=== PATIENT | female | born 1990 | race Caucasian/White ===

== ENCOUNTER 2021-02-18 01:04 | Emergency (ER) | payer SELFPAY ==
--- NOTE | 2021-02-18 01:45 | EDM.PDOC ---
ED HPI GENERAL MEDICAL PROBLEM - General Chief Complaint: DIRECTOR DIGITAL ADVERTISING Problem Stated Complaint: 3 MONTHS PREG, ALOT OF BLOOD WHEN GOING TOBATHROOM Time Seen by Provider: 02/18/21 01:43 Source of Information: Reports: Patient, RN, RN Notes Reviewed History Limitations: Reports: No Limitations - History of Present Illness INITIAL COMMENTS - FREE TEXT/NARRATIVE: Ida is a 30 y/o female with an OB history of L1 who presents to the ED via personal vehicle with complaints of vaginal bleeding. The patient states she noted blood while using the toilet approximately one hour prior to her arrival at this facility. She denies history of previous complications with this . She denies recent illness, fever, shaking chills, nausea, vomiting, abdominal pain, abdominal cramping, vaginal discharge, dysuria, hematuria, constipation, diarrhea, rough intercourse, or rigorous activity. She states her LMP was 10/25/2020 and is approximately 14 weeks . The patient reports she will be following with Dr. Taylor for obstetrical care and has an appointment March 01, 11 days from now. - Related Data Allergies Allergy/AdvReac Type Severity Reaction Status Date / Time No Known Allergies Allergy Verified 02/18/21 03:42 Home Meds: Home Meds . [No Known Home Meds] 02/18/21 [History] ED ROS GENERAL - Review of Systems Review Of Systems: Comprehensive ROS is negative, except as noted in HPI. ED EXAM - Physical Exam Exam: See Below Exam Limited By: No Limitations General Appearance: Alert, No Apparent Distress Throat/Mouth: Normal Inspection, Normal Oropharynx, Normal Voice, No Airway Compromise Head: Atraumatic, Normocephalic Neck: Normal Inspection, Supple, Non-Tender, Full Range of Motion Respiratory/Chest: No Respiratory Distress, Lungs Clear, Normal Breath Sounds, No Accessory Muscle Use, Chest Non-Tender Cardiovascular: Normal Peripheral Pulses, Regular Rate, Rhythm, No Edema, No Gallop, No JVD, No Murmur, No Rub GI/Abdominal Exam: Normal Bowel Sounds, Soft, Non-Tender, No Distention, No Mass, Pelvis Stable Rectal Exam: Deferred (Female) Exam: Normal External Exam, Cervical Discharge (Red-tinged). No: Normal Speculum Exam (Scant red-tinged discharge noted from cervix), Adnexal Tenderness, Cervical Dilatation, Cervical Lesions, Cervix Motion Tenderness, Tissue Present in Cervix/Vagina, Uterine Tenderness, Vaginal Bleeding, Vaginal Discharge, Vaginal Lesions, Vaginal Tears Heart Tones: Present Heart Tones per Min: 155 Movement: Active (via US) Back Exam: Normal Inspection, Full Range of Motion. No: CVA Tenderness (L), CVA Tenderness (R) Extremities: Normal Inspection, Normal Range of Motion, Non-Tender, No Pedal Edema, Normal Capillary Refill Neurological: Alert, Oriented, CN II-XII Intact, Normal Cognition, Normal Gait, No Motor/Sensory Deficits Psychiatric: Normal Affect, Normal Mood Skin Exam: Warm, Dry, Intact, Normal Color, No Rash. No: Ecchymosis, Erythema, Jaundice, Mottled, Pallor, Petechiae Course - Vital Signs Last Recorded V/S: Last Vital Signs Temp 98.1 F 02/18/21 01:10 Pulse 99 02/18/21 01:10 Resp 18 02/18/21 01:10 BP 121/58 L 02/18/21 01:10 Pulse Ox 100 02/18/21 01:10 - Orders/Labs/Meds Labs: Laboratory Tests 02/18/21 02/18/21 02/18/21 Range/Units 01:50 01:50 01:50 WBC 14.4 H (5.0-10.0) 10^3/uL RBC 3.88 L (4.2-5.4) 10^6/uL Hgb 11.5 L (12.0-16.0) g/dL Hct 34.3 L (37.0-47.0) % MCV 88.4 (80-100) fL MCH 29.6 (27.0-34.0) pg MCHC 33.5 (33.0-35.0) g/dL Plt Count 326 (150-450) 10^3/uL Neut % (Auto) 67.1 (42.2-75.2) % Lymph % (Auto) 24.5 (20.5-50.1) % Tyler % (Auto) 6.7 (2-8) % Eos % (Auto) 1.4 (1.0-3.0) % Baso % (Auto) 0.3 (0.0-1.0) % Sodium 138 (136-145) mmol/L Potassium 4.2 (3.5-5.1) mmol/L Chloride 104 (98-107) mmol/L Carbon Dioxide 25 (21-32) mmol/L Anion Gap 13.2 H (7-13) mEq/L BUN 6 L (7-18) mg/dL Creatinine 0.71 (0.55-1.02) mg/dL Est Cr Clr Drug Dosing 108.46 mL/min Estimated GFR (MDRD) > 60 BUN/Creatinine Ratio 8.5 (No establ ref range) Glucose 142 H (70-99) mg/dL Calcium 8.2 L (8.5-10.1) mg/dL Total Bilirubin 0.2 (0.2-1.0) mg/dL AST 10 L (15-37) U/L ALT 18 (14-59) U/L Alkaline Phosphatase 32 L (46-116) U/L Total Protein 6.4 (6.4-8.2) g/dL Albumin 3.0 L (3.4-5.0) g/dL Globulin 3.4 Albumin/Globulin Ratio 0.88 HCG, Quant 03030 H (0-6) mIU/mL - Radiology Interpretation Free Text/Narrative:: [facility] - Final Radiology Report Call: [phone] assistance Online chat: [email or web address] Name: IDA LOGAN Age: 30Years F Date: 02/18/2021 SSN: -- : 1990 Study: US OB 1ST TRI EA ADDL GEST Requesting Physician: Yamilex Odonnell Images: 15 Addl Studies: Provided Clinical History: Vaginal bleeding Contrast: Without Contrast Medium: Contrast Amount: Contrast Method: Page 1 of 2 PROCEDURE INFORMATION: Exam: US First Trimester, Transabdominal Exam date and time: 02/18/2021 2:34 AM Age: 30 years old Clinical indication: Lmp or gestational age (in weeks): 13 w 6 d by lmp; Other: Bleeding; ; Additional info: Vaginal bleeding TECHNIQUE: Imaging protocol: Real-time transabdominal obstetrical ultrasound of the maternal pelvis and a first trimester , less than 14 weeks 0 days, with image documentation. COMPARISON: No relevant prior studies available. FINDINGS: Gestation: Single intrauterine gestation. Yolk sac is unremarkable. Embryonic/ heart rate: 155 bpm Extra-embryonic membranes/Placenta: Unremarkable. No subchorionic bleed. Amniotic fluid: Amniotic and coelomic fluid are normal for gestational age. BIOMETRY: Gestational age (AUA): 13 weeks 2 days MATERNAL: Uterus: Unremarkable. Cervix: Unremarkable. Right adnexa: Unremarkable. Left adnexa: Unremarkable. Intraperitoneal space: No intraperitoneal free fluid. IMPRESSION: Single live intrauterine with ultrasound measurements corresponding to an age of 13 weeks 2 days. No acute abnormality. Thank you for allowing us to participate in the care of your patient. Dictated and Authenticated by: Ryan Mckeon MD 02/18/2021 4:05 AM Central Time ([place] & [place]) - Re-Assessments/Exams Free Text/Narrative Re-Assessment/Exam: 02/18/21 Speculum exam appropriate. Will obtain obstetric US. Hgb mildly reduced at 11.5. Appropriate elevation in WBC at 14.4 given . Electrolytes, kidney function, and liver function via CMP. Hcg 14549, consistent with stated LMP. US reveals single intrauterine gestation, measuring 13+2. movement noted on US. Fundal placenta. Findings of examination, blood work, and imaging reviewed with patient. Discussed need to follow up with Dr. Taylor following ED visit. Red flag signs and symptoms which would warrant immediate reevaluation reviewed. Patient verbalized understanding and agreement with the plan of care. Departure - Departure Time of Disposition: 04:10 Disposition: Home, Self-Care 01 Condition: Good Clinical Impression: First trimester , Vaginal bleeding before 22 weeks gestation, Normocytic normochromic anemia - Discharge Information *PRESCRIPTION DRUG MONITORING PROGRAM REVIEWED*: Not Applicable *COPY OF PRESCRIPTION DRUG MONITORING REPORT IN PATIENT CONSTANTINE: Not Applicable Instructions: Vaginal Bleeding During , First Trimester, [id number] Referrals: Heber Taylor MD [Primary Care Provider] - Forms: ED Department Discharge Additional Instructions: 1.) Follow up with your OBGYN regarding today's visit. 2.) Continue to monitor for vaginal bleeding, return to the emergency department with any vaginal bleeding that saturates a pad in one hour, x2 hours. 3.) Drink plenty of water to stay hydrated. Sepsis Event Note (ED) - Focused Exam Vital Signs: Vital Signs Temp Pulse Resp BP Pulse Ox 05/28/21 01:10 98.1 F 99 18 121/58 L 100
[2021-02-18 02:46] LABS: ANION GAP 13.2 mEq/L (7-13); CHLORIDE,CL 104 mmol/L (98-107); SODIUM,NA 138 mmol/L (136-145)
--- NOTE | 2021-02-18 04:06 | US ---
PROCEDURE INFORMATION: Exam: US First Trimester, Transabdominal Exam date and time: 02/18/2021 2:34 AM Age: 30 years old Clinical indication: Lmp or gestational age (in weeks): 13 w 6 d by lmp; Other: Bleeding; ; Additional info: Vaginal bleeding TECHNIQUE: Imaging protocol: Real-time transabdominal obstetrical ultrasound of the maternal pelvis and a first trimester , less than 14 weeks 0 days, with image documentation. COMPARISON: No relevant prior studies available. FINDINGS: Gestation: Single intrauterine gestation. Yolk sac is unremarkable. Embryonic/ heart rate: 155 bpm Extra-embryonic membranes/Placenta: Unremarkable. No subchorionic bleed. Amniotic fluid: Amniotic and coelomic fluid are normal for gestational age. BIOMETRY: Gestational age (AUA): 13 weeks 2 days MATERNAL: Uterus: Unremarkable. Cervix: Unremarkable. Right adnexa: Unremarkable. Left adnexa: Unremarkable. Intraperitoneal space: No intraperitoneal free fluid. IMPRESSION: Single live intrauterine with ultrasound measurements corresponding to an age of 13 weeks 2 days. No acute abnormality.
== END 2021-02-18 04:25 | disposition home or self-care (01) ==
LOC: DL.ED 01:04
DX: O20.9 Hemorrhage in early pregnancy, unspecified (principal); O99.012 Anemia complicating pregnancy, second trimester; Z3A.22 22 weeks gestation of pregnancy
CPT/HCPCS: 36415; 76802; 80053; 84702; 85025; 99284-25

== ENCOUNTER 2021-08-11 08:45 | Inpatient (IN) | payer MEDICAID ==
[2021-08-11] MEDS ORDERED: ePHEDrine 50 MG/ML SDV IVPUSH PRN (12:52)
[2021-08-11] MEDS ORDERED: Naloxone 2 MG/2 ML Syringe IVPUSH PRN (12:52)
[2021-08-11] MEDS ORDERED: Methylergonovine 0.2 MG/1 ML Amp IM PRN (12:52)
[2021-08-11] MEDS ORDERED: Carboprost Tromethamine 250 MCG/1 ML Amp IM PRN (12:52)
[2021-08-11] MEDS ORDERED: Tranexamic Acid 1,000 MG in Sodium Chloride 0.9% 100 ML IV PRN (12:52)
[2021-08-11] MEDS ORDERED: Lactated Ringers 1,000 ML IV SCH (12:52)
[2021-08-11] MEDS ORDERED: Docusate Sodium 100 MG Cap PO PRN (12:52)
[2021-08-11] MEDS ORDERED: Acetaminophen/oxyCODONE 325-5 MG Tab PO PRN ×2 (12:52)
[2021-08-11] MEDS ORDERED: Ondansetron 4 MG/2 ML SDV IVPUSH PRN (12:52)
[2021-08-11] MEDS ORDERED: Misoprostol 400 MCG (4 X 100 MCG TAB) RECTAL PRN (12:52)
[2021-08-11] MEDS ORDERED: diphenhydrAMINE 50 MG/ML SDV IVPUSH PRN (12:52)
--- NOTE | 2021-08-11 12:53 | HP ---
"CHIEF COMPLAINT: Biophysical profile score less than or equal to 6/10. HISTORY OF PRESENT ILLNESS: Azra is a 31-year-old, G2, P1-0-0-1, at 38-5/7 days gestational age by first trimester ultrasound. She was seen today for surveillance with nonstress test and biophysical profile due to gestational diabetes and Rh negative status. Upon completion of biophysical profile this morning, Dr. Taylor was notified of poor BPP. NST was reassuring, however, reactive baseline FHT in the 140s, acels present and moderate variability. Upon consultation with [facility] Obstetric[facility] on-call Dr. Ureña, was called and then upgraded to emergent as having contractions. OBSTETRIC HISTORY: Azra's previous and delivery were complicated by failure to progress resulting in primary low-transverse . The patient declines vaginal after , opting for repeat . Current complicated by GBS positive status, gestational diabetes controlled on oral hypoglycemic and Rh-negative status. LABS: Blood type is AB negative. RhoGAM given 06/01/2021. Antibody screen negative. Rubella immune. Syphilis negative. Gonorrhea negative. Chlamydia negative. HIV negative. Wet prep revealed bacterial vaginosis. This is resolved. Oral glucose tolerance test at 1 hour was 241. Gestational diabetes was confirmed with 3-hour oral glucose tolerance test. The patient is GBS positive as of 07/28/2021. PAST MEDICAL HISTORY: Significant for GBS positive carrier, gestational diabetes. Current every day smoker, on average 4 cigarettes per day. SURGICAL HISTORY: Remarkable for low-transverse in 06/2019. FAMILY HISTORY: Significant for cancer in maternal grandmother, diabetes in paternal grandmother and maternal grandfather. No history of anesthesia problems or bleeding problems. SOCIAL HISTORY: Azra lives in [place] with Nav Barajas, father of her baby, and their shared kids every other week [employer] and Tushar. They have cats, dogs, and Guinea pigs in the home. MEDICATIONS: Include metformin 1000 mg, vitamin, and RhoGAM. ALLERGIES: The patient reports an allergy to penicillin. Upon questioning, the patient relays that her mother always told her that she was allergic to penicillin. She does not know the reaction or when. Unable to review records of previous to ascertain if Ancef was used and tolerated. Clinic records reviewed and the patient was given Augmentin in 09/2018 and 07/2019 without issue. Currently plan to Ancef for surgical antibiotics prophylaxis. As well, the patient has an intolerance to Aleve. REVIEW OF SYSTEMS: The patient denies fever, chills, nausea, vomiting, right upper quadrant pain, vision changes, headache, leakage of fluid, vaginal bleeding. Endorses perception of movement. PHYSICAL EXAMINATION: Vitals: BP 138/75 | HR 85 | RR 18 | Temp 98.7. General: Alert, in no acute distress. HEENT: Extraocular muscles intact. Pupils equal, round, and reactive to light. Mouth and throat reveal Mallampati score of 2. Heart: Regular rate and rhythm without murmur. Lungs: Clear to auscultation bilaterally. Abdomen: Gravid and nontender. Soft. Previous scar visualized and appears well healed. : Not done. Musculoskeletal: No edema of lower extremities. Range of motion intact. Neuro: No clonus. Deep tendon reflexes 2+ and equal bilaterally. LABS: admission hgb: 11.1, hct 33.3, plt 345 POC blood glucose 107 (estimated to be 2 hours post prandial from brennan and egg omelet breakfast) ASSESSMENT: This is a 31-year-old, 2, para 1-0-0-1 at 38 weeks 5 days. 1. Group B streptococcus carrier. 2. Gestational diabetes in third trimester, controlled on oral hypoglycemic. 3. Rh negative status. 4. High-risk in third trimester. 5. History of section. 6. Declines vaginal delivery after section. 7. Nonreactive biophysical profile resulting in emergent section. PLAN: Discussed with the patient results of biophysical profile and NST, reassured by an NST despite BPP outlook poor. Shared with patient the recommendation of OB in [place] to proceed with . Discussed risks, benefits, and consent was obtained to proceed with C- section. The patient reports an allergy to penicillin. Upon questioning, the patient relays that her mother always told her that she was allergic to penicillin. She does not know the reaction or when. Unable to review records of previous to ascertain if Ancef was used and tolerated. Clinic records reviewed and the patient was given Augmentin in 09/2018 and 07/2019 without issue. Currently plan to use Ancef for surgical antibiotics prophylaxis. The patient was seen by myself and Dr. Taylor. Assessment and plan are under advisement of Dr. Taylor. Seen with medical student. Patient was personally seen and examined with the medical student practitioner student, Will Santiago. I reviewed the noted scribed on my behalf and necessary changes have been made to reflect my opinion on the history, exam, assessment, and plan [facility] /[id number] MTDD"
--- NOTE | 2021-08-11 13:38 | PN ---
DATE: 08/11/2021 SUBJECTIVE: The patient started contractions felt in the lower abdomen on the monitor coming every 3 to 5 minutes apart. OBJECTIVE: Tocometer with contractions, appears to be 3 to 5 minutes apart with variability of heart tones in the 120s to 130s range, some accelerations are noted. Vaginal: Deferred. ASSESSMENT AND PLAN: Further discussion with physicians including a [employer] radiologist with concerns of issues with the fetus as well as the patient now having contractions and feeling them with history of , we will proceed to the OR as soon as crew is ready and available and make this an emergent/urgent-type situation. I did discuss this with the patient. Did discuss with her potential risk with recent breakfast this morning at 7 a.m. but in light of concerns with status and timeliness, we will proceed to the OR as soon as crew is ready and available for . I have reviewed consent and consent will be obtained prior to procedure. In addition, patient's chart listed her as allergic to amoxicillin, she says because her mom told her she was allergic. She has received Augmentin in the past in 2019 without reaction. We will order Ancef preoperatively and we will proceed to the OR as soon as crew is ready and available. [facility] /[id number]
[2021-08-11] MEDS ORDERED: ceFAZolin 2 GM in Premix Bag 1 BAG IV ONE (13:50)
[2021-08-11] MEDS ORDERED: Oxytocin/Normal Saline 30 UNIT/500 ML BAG IV SCH (14:00)
[2021-08-11] MEDS ORDERED: Oxytocin/Normal Saline 0 UNIT/0 ML BAG ONE (14:04)
[2021-08-11] MEDS: Simethicone 80 MG Tab.Chew PO SCH ×3 (15:19→22:09)
[2021-08-11] MEDS: Acetaminophen 325 MG Tab PO PRN (16:54)
[2021-08-11] MEDS: Ketorolac 30 MG/ML SDV IVPUSH SCH (19:31)
--- NOTE | 2021-08-11 19:42 | OBOUT ---
DATE: 08/11/2021 TIME: 9:30 to 9:50. REASON FOR NST: 1. Intrauterine at 38-5/7 weeks by 11-6/7 week ultrasound. 2. Biophysical profile scored initially 2 to 4 out of 8 on ultrasound component. 3. Gestational diabetes mellitus, requiring medication. 4. Previous x1. Request repeat low transverse . 5. Rh negative. 6. Transient hypertension. 7. G2, P1-0-0-1. NST INTERPRETATION: During this time period, heart tone baseline is approximately 125 to 130 and at least two 15 x 15 beats per minute accelerations making this strip reactive as well as reassuring. Tocometer reveals some irritability. Initial blood pressure was 140/81, heart rate 80, temperature 97.6; recheck 134/75, heart rate 73. ASSESSMENT: Nonstress test, reactive and reassuring. Tocometer with irritability. PLAN: Part of the workup, a biophysical profile score was done. Initially scored 2/8 and then increased to 4/8 as fluid was better visualized as well as tone, subsequent with the above NST scores 6/10. I did discuss this case with Dr. Ureña, MANUFACTURING DESIGN ENGINEER on-call today, and due to her risk factors and being 38- 5/7 weeks and previous , request repeat low transverse . He recommended proceeding with repeat low transverse today. As the patient has reassuring and reactive strip at this point in time and ate breakfast this morning, we will plan on doing the later in the day. I did discuss with her risks, benefits, alternatives, complications of including, but not limited to, infection; bleeding; damage to the nerve root and structures such as bowel, bladder, tubes, uterus, sometimes fetus, rarely needing a blood transfusion or further surgery; and even rare maternal or . She understands and agrees and wishes to proceed. Verbal and written consents were obtained. Questions were answered. We will proceed to the OR over noon hour unless further concerns are noted and we will have continuous maternal monitoring at this point in time. The patient understands and agrees to above treatment plan. [facility] /[id number] ANA
[2021-08-12] MEDS ORDERED: diphenhydrAMINE 50 MG Cap PO ONE (00:11)
[2021-08-12] MEDS: Ketorolac 30 MG/ML SDV IVPUSH SCH ×2 (00:32→06:25)
--- NOTE | 2021-08-12 01:57 | PN ---
"DATE: 08/12/2021 Postop day 1, status post repeat low transverse . SUBJECTIVE: The patient is tolerating diet and passing flatus. Clinton is still in place at this time with good urine output. The patient is the with success. Azra does endorse generalized pruritus. Otherwise, pain is well controlled with anti-inflammatory medications, patient declines percocet in favor of ibuprofen or tylenol. The patient denies chills, headache, chest pain, shortness of breath, nausea, vomiting, diarrhea, or excessive vaginal bleeding. OBJECTIVE: Vital Signs: Temp 97.5 | HR 66 | BP 121/55 | RR 16. General: Well, in no acute distress. Heart: Regular rate and rhythm without murmur. Lungs: Clear to auscultation bilaterally. Abdomen: Soft. Uterine fundus is firm, palpates around the level of the umbilicus. Aquacel dressing intact, shows shadowing on right side extending to the midline by 8 cm, not actively draining. Genitourinary: Clinton in place. Extremities: SCDs are on. Neurologic: No deficits. ASSESSMENT: 1. Status post repeat low transverse section. 2. Group B Streptococcus carrier. 3. Gestational diabetes in third trimester, controlled on oral hypoglycemic. 4. Rh negative status. 5. High-risk in third trimester. 6. History of section. 7. Declines vaginal delivery after section. 8. Nonreactive biophysical profile resulting in emergent section. PLAN: We will continue to follow clinically and closely. RhoGAM given again due to Rh negative status of mother. Star cord blood sample revealed baby is Rh positive, indicating RhoGAM administration. The patient understands and agrees with the treatment plan. Please see orders for further details. The patient is seen by myself and Dr. Taylor. Assessment and plan are under advisement of Dr. Taylor. seen and agreed DCW. [facility] /[id number] MTDArtur"
--- NOTE | 2021-08-12 07:41 | OR ---
DATE: 08/11/2021 PREOPERATIVE DIAGNOSES: 1. Intrauterine at 38-5/7 weeks by 11-6/7 week ultrasound. 2. Biophysical profile scored 6/10. Concerns with status and recommendation by FIELD ARTILLERY TARGETING TECHNICIAN to proceed with repeat low transverse section. 3. Contractions starting while waiting to go to the OR with concerns with status. Subsequently, emergent section called for. 4. Gestational diabetes mellitus, requiring medications. Initial blood sugar 107 after a large meal this morning. 5. Previous section x1. Request repeat low transverse section. 6. Rh negative. 7. Transient hypertension. 8. Labeled as penicillin allergy only because her mom told her. She has received Augmentin in the past in 2019 without reaction and received Ancef today without reaction. 9. G2, P1-0-0-1. DISCHARGE DIAGNOSES: 1. Intrauterine at 38-5/7 weeks by 11-6/7 week ultrasound, delivered. 2. Nuchal cord x1, reduced bluntly with delivery. 3. Biophysical profile scored 6/10. Concerns with status and recommendation by FIELD ARTILLERY TARGETING TECHNICIAN to proceed with repeat low transverse section. 4. Contractions starting while waiting to go to the OR with concerns with status. Subsequently, emergent section called for. 5. Gestational diabetes mellitus, requiring medications. Initial blood sugar 107 after a large meal this morning. 6. Previous section x1. Request repeat low transverse section. 7. Rh negative. 8. Transient hypertension. 9. Labeled as penicillin allergy only because her mom told her. She has received Augmentin in the past in 2019 without reaction and received Ancef today without reaction. 10.G2, P1-0-0-1. PROCEDURE PERFORMED: Nonstress test followed by repeat low transverse section. FIRST ASSISTANTS: Catherine Gonzalez, MS3 and Rosey Espinoza, PGY-III ANESTHESIA: Spinal. ESTIMATED BLOOD LOSS: 400 mL. IV FLUIDS: 1500 mL. URINE OUTPUT: 100 mL and clear. Start 12:12, uterine incision 12:16, delivery 12:16, stop 12:34. FINDINGS: Male, score 8 and 9. Weight pending. Nuchal cord x1, reduced bluntly with delivery. DESCRIPTION OF PROCEDURE IN DETAIL: After proper consent, the patient brought to the operating room, where spinal anesthetic was administered. Clinton was placed under preop sterile conditions. Abdomen was prepped and draped in normal sterile fashion. The patient was placed in supine position with left lateral tilt. A skin incision was then made over lower abdomen in transverse Pfannenstiel-type fashion over previous scar. This was carried down the fascia and scored in the midline. Subcutaneous tissue raked by Prieto retraction. Fascial incision was extended in transverse fashion using curved Escobar's. Karlos clamps x2 used to grasp the superior aspect of the fascia, and rectus muscles dissected from the fascia using sharp and blunt technique. In similar fashion, Karlos clamps x2 used to grasp the inferior portion of the incision and rectus pyramidalis muscles dissected from the fascia using sharp and blunt technique. Rectus muscles were in the midline with blunt technique. Abdominal cavity was entered with blunt technique. Incision was extended superiorly and inferiorly with blunt technique. Jason O large retractor was then introduced and used. Vesicouterine peritoneum was identified, incised in transverse fashion with Metzenbaum scissors. Bladder flap was made digitally. Curvilinear incision made on lower uterine segment at 1216 hours. Clear fluid returned. Uterine incision was extended in transverse fashion using blunt technique. vertex was then delivered through the incision with the nuchal cord x1 reduced bluntly at delivery followed by rest of the infant without difficulty. Mouth and nares were suctioned. Cord was doubly clamped and cut and the was brought to team. Then, approximately 10 mL cord blood was obtained for labs. Placenta then delivered with gentle cord traction and fundal massage. Uterine cavity was then cleared of all blood clots and debris with lap sponge. Adams clamps were used to grasp the uterine incision. This was closed in a running locking fashion and tied with 1-0 Vicryl. Minimal bleeding. Midline incision required 3 [id number] stitches and hemostasis reassured. First inspection of the uterine incision revealed hemostasis. Jason O retractor was then removed, and subsequently paracolic gutters were then cleared of all blood clots and debris with lap sponge. Anterior cul-de-sac was then irrigated copiously and all blood clots removed. Second and final inspection of the uterine incision and the cul-de-sac revealed hemostasis. Rectus muscles were then reapproximated in the midline with [id number] stitch using 1-0 Vicryl. Subfascial tissues were found to be hemostatic. Fascia was closed in a running fashion and tied at lateral margin with 0 looped PDS. Subcutaneous tissue irrigated copiously. Hemostasis reassured. Skin was reapproximated with medium milad. Sterile Aquacel dressing applied. Uterine fundus was firm and massaged at the conclusion of the case at the umbilicus. No immediate complications noted. Sponge, lap, and needle counts correct. The patient received 2 g Ancef preoperatively, Pitocin per protocol, and received Toradol at conclusion of the case for pain control. Mother and are currently stable at time of dictation. [facility] /[id number] ANA
--- NOTE | 2021-08-12 09:14 | PCM.SN.2 ---
- Free Text/Narrative Note: 09:00. 08/12/21 RN Claribel noted dressing to be saturated, seeping dark red fluid. Patient reports she has showered this morning, no new pain at incision site. Surgicel dressing removed. Incision without bleeding or non-approximated edges. Patted dry with guaze, no bright red bleeding or non-approximated edges apprecia kerline. ABD dressing applied. Radha Soriano MD PGY3
[2021-08-12] MEDS: Acetaminophen 325 MG Tab PO PRN ×2 (10:42→21:16)
[2021-08-12] MEDS: Simethicone 80 MG Tab.Chew PO SCH ×4 (10:44→21:16)
[2021-08-12] MEDS: Prenatal Multivitamin with Calcium/Folic Acid/Iron Tab PO SCH (10:44)
[2021-08-12] MEDS ORDERED: Oxytocin/Normal Saline 30 UNIT/500 ML BAG IV ONE (13:43)
[2021-08-12] MEDS: Ibuprofen 800 MG Tab PO PRN ×2 (14:37→22:36)
[2021-08-13] MEDS: Acetaminophen 325 MG Tab PO PRN ×2 (02:30→08:35)
[2021-08-13] MEDS: Ibuprofen 800 MG Tab PO PRN (06:29)
[2021-08-13] MEDS: Prenatal Multivitamin with Calcium/Folic Acid/Iron Tab PO SCH (08:34)
[2021-08-13] MEDS: Simethicone 80 MG Tab.Chew PO SCH (08:35)
--- NOTE | 2021-08-14 06:59 | DISCH ---
ADMISSION DIAGNOSES: 1. Intrauterine at 38-5/7 weeks, confirmed by 11-6/7 weeks' ultrasound. 2. Biophysical profile 03/03. 3. Gestational diabetes, controlled on metformin. 4. Previous section x1. 5. Rh-negative status. 6. G2, P 1-0-0-1. 7. Transient hypertension. DISCHARGE DIAGNOSES: 1. Intrauterine at 38-5/7 weeks, confirmed by 11-6/7 weeks' ultrasound, status post repeat low transverse section under intrathecal anesthesia. 2. Biophysical profile 03/03. 3. Gestational diabetes, controlled on metformin. 4. Previous section x1. 5. Rh-negative status. 6. G2, P 2-0-0-2. 7. Transient hypertension. PROCEDURE PERFORMED: Repeat low transverse section under intrathecal anesthesia. BRIEF HISTORY: A 31-year-old, G2, now P 2-0-0-2, female at 38-5/7 week gestation with above listed diagnoses presented for routine NST and BPP due to gestational diabetes, which revealed a BPP of 6/10 and the presence of contractions. After consultation with PROVIDER EDUCATION SPECIALIST in [place], urgent was scheduled and baby boy was born with scores of 8 and 9, weight 3815 g. Estimated blood loss was 400 mL. HOSPITAL COURSE: Has been good. Mother has recovered well since . She is ambulating, eating appropriately, urinating, and passing gas. Has minimal passage of blood clots and bleeding. Pain has been controlled with Motrin and Tylenol only as Mother has a history of intolerance to Percocet. She wishes to be discharged home today. There are no signs of infection, hemorrhage, or other complications. DISCHARGE CONDITION: Good. PHYSICAL EXAMINATION: Vital Signs: Temperature 97.6 Fahrenheit, pulse 74, blood pressure 120/69, respiratory rate 18, O2 saturation 99 on room air. Abdomen: Soft, nontender. Fundus is firm, below umbilicus. Extremities: No edema, erythema, or tenderness noted. LABORATORY DATA: Preadmission hemoglobin 11.1, platelets 345, and POC glucose 107. Discharge hemoglobin 10.2 and platelets 315. DISPOSITION: Home with family. MEDICATIONS: [id number] Tylenol and ibuprofen as needed for pain. Ten pills of Percocet were prescribed in the event of breakthrough pain. Continue vitamin with iron. FOLLOWUP: In clinic next Sunday08/15/[address] Taylor for and in 6 weeks for routine examination. INSTRUCTIONS: Routine instructions for breast-feeding were provided and all questions answered. The patient was seen by myself and Dr. Fitch. Assessment and plan are under advisement of Dr. Fitch. [facility] /[id number] [facility]US[facility]
== END 2021-08-13 11:25 | disposition home or self-care (01) | DRG 788 ==
LOC: DL.US 08:45 → UNDOADMIN 12:16 → DL.OB 12:16
PROVIDERS: ADMIT Family Medicine; ATTEND Family Medicine
PROC: 10D00Z1 Extraction of Products of Conception, Low, Open Approach (ICD-10-PCS; principal; 2021-08-11)
DX: O24.420 Gestational diabetes mellitus in childbirth, diet controlled (principal); Z3A.38 38 weeks gestation of pregnancy; Z37.0 Single live birth; O13.4 Gestational [pregnancy-induced] hypertension without significant proteinuria, complicating childbirth; O99.334 Smoking (tobacco) complicating childbirth; F17.210 Nicotine dependence, cigarettes, uncomplicated; Z88.0 Allergy status to penicillin; O99.824 Streptococcus B carrier state complicating childbirth; Z20.822 Contact with and (suspected) exposure to COVID-19
CPT/HCPCS: 01961; 36415; 36430; 59025; 82947; 85025; 85027; 86850; 86900; 86901; A9270-GY; J0690; J1200; J1885; J2590; J2790; J7120; U0002